=== PATIENT | female | born 1970 | race Caucasian/White ===

== ENCOUNTER 2021-04-22 14:02 | Emergency (ER) | payer OTHER ==
[~2021-04-22] VITALS: Ht 162.6 cm; Wt 68.0 kg
[2021-04-22] MEDS ORDERED: ONDANSETRON ODT 4 MG TAB.RAPDIS SL ONE (15:00)
[2021-04-22 15:41] LABS: HEMATOCRIT 40.2 % (31.2-41.9); MEAN CORPUSCULAR HEMOGLOBIN 32.1 uug (24.7-32.8); MEAN CORPUSCULAR VOLUME 95.3 fL (75.5-95.3); PLATELET COUNT (AUTO) 235 K/uL (179-408)
[2021-04-22 15:42] LABS: CREATININE 0.7 mg/dL (0.6-1.3); POTASSIUM 3.8 mmol/L (3.5-5.1)
[2021-04-22 15:45] LABS: MAGNESIUM 2.3 mg/dL (1.8-2.4); PHOSPHOROUS 3.1 mg/dL (2.5-4.9)
[2021-04-22 15:48] LABS: BILIRUBIN,DIRECT 0.1 mg/dL (0.0-0.2); BILIRUBIN,TOTAL 0.5 mg/dL (0.2-1.0); TOTAL PROTEIN, SERUM 7.8 g/dL (6.4-8.2)
[2021-04-22] MEDS ORDERED: ONDANSETRON ODT 4 MG TAB.RAPDIS ONE (16:06)
[2021-04-22] MEDS ORDERED: IBUP-1955 PO (16:07)
--- NOTE | 2021-04-22 16:09 | NUR ---
Pt BIB [facility]/P slipped and fell, pt then sat up , felt dizzy and had syncope. Pt c/o dizziness, KIDD and nausea. Pt denies CP, SOB, no distress noted. Pt appears anxious.
== END 2021-04-22 16:55 | disposition home or self-care (01) ==
LOC: ER 14:02
DX: S83.92XA Sprain of unspecified site of left knee, initial encounter (principal); W01.0XXA Fall on same level from slipping, tripping and stumbling without subsequent striking against object, initial encounter; Y93.89 Activity, other specified; Y92.512 Supermarket, store or market as the place of occurrence of the external cause; R55 Syncope and collapse; M25.562 Pain in left knee; R00.1 Bradycardia, unspecified
CPT/HCPCS: 36415; 70030-TC; 70450; 73560; 83735; 84100; 85025; 93005; A4663; Q0162

== ENCOUNTER 2022-01-06 12:36 | Emergency (ER) | payer OTHER ==
[~2022-01-06] VITALS: Ht 162.6 cm; Wt 67.1 kg
[~2022-01-06 12:36] MED LIST: IBUP-1955 PO
--- NOTE | 2022-01-06 12:59 | NUR ---
MD@bedside, medical screening exam in progress
[2022-01-06] MEDS ORDERED: IBUPROFEN 400 MG TABLET PO ONE (13:15)
[2022-01-06] MEDS ORDERED: ACETAMINOPHEN 325 MG TABLET PO ONE (13:15)
[2022-01-06] MEDS ORDERED: IBUPROFEN 400 MG TABLET ONE (13:16)
[2022-01-06] MEDS ORDERED: ACETAMINOPHEN ES 500 MG TABLET ONE (13:16)
--- NOTE | 2022-01-06 13:19 | NUR ---
Patient refused to take Tylenol and Motrin@this time. "I'll take it at home." per patient. notified.
--- NOTE | 2022-01-06 13:39 | NUR ---
Patient is in CT scan@the moment.
--- NOTE | 2022-01-06 13:54 | NUR ---
Patient is resting comfortably on a chair while waiting for her CT scan results. Spouse is at bedside.
--- NOTE | 2022-01-06 14:10 | NUR ---
Patient discharged to home in stable condition with brisk steady gait. Written and verbal after care instructions given to patient anmd spouse. Patient and family verbalized understanding and compliance of instructions. Stressed follow up with primary doctor or return to ER for worsening s/s.
[2022-01-06 14:11] VITALS: BP 122/70
== END 2022-01-06 14:12 | disposition home or self-care (01) ==
LOC: ER 12:43
DX: S09.90XA Unspecified injury of head, initial encounter (principal); R51.9 Headache, unspecified; W22.8XXA Striking against or struck by other objects, initial encounter; Y92.89 Other specified places as the place of occurrence of the external cause; Y99.8 Other external cause status
CPT/HCPCS: 70450; A4663; A9150